=== PATIENT | female | born 1995 | race Caucasian/White ===

== ENCOUNTER 2021-11-06 11:36 | Emergency (ER) | payer SELFPAY ==
[~2021-11-06] VITALS: Ht 167.6 cm; Wt 72.6 kg
--- NOTE | 2021-11-06 12:00 | NUR ---
at bedside to examine pt.
[2021-11-06] MEDS ORDERED: TDAP DIPH,PERTUSS,TET VAC/PF 0.5 ML DISP.SYRIN IM ONE ×2 (12:15→12:20)
[2021-11-06] MEDS ORDERED: LIDOCAINE HCL 1% 20 ML VIAL IJ ONE (12:15)
[2021-11-06] MEDS ORDERED: NEOMY/BACITRA/POLYMYXIN B OINT UD PACKET TP ONE ×3 (12:15→12:55)
[2021-11-06] MEDS ORDERED: LIDOCAINE HCL 1% 20 ML VIAL ONE (12:19)
== END 2021-11-06 14:30 | disposition home or self-care (01) ==
LOC: ER 11:36
DX: S01.01XA Laceration without foreign body of scalp, initial encounter (principal); W18.30XA Fall on same level, unspecified, initial encounter; Y92.89 Other specified places as the place of occurrence of the external cause; R55 Syncope and collapse
CPT/HCPCS: 12002; 90471; 90715; 93005; 99283; J3490; A4663; L8699